=== PATIENT | female | born 1960 | race Caucasian/White ===

== ENCOUNTER → 2016-07-06 | Outpatient (CLI) | payer BC ==
[2016-01-07 14:37] VITALS: BP 115/74; PULSE 83
[~2016-07-06] MED LIST: ANAS1TAB19 PO; ASTN NAE; CALC-452 PO; CALCTAB5 PO; CHOL20007 PO; DOXY-300 PO; ESCI1TAB10 PO; EXEM1TAB PO; IBUP-1050 PO; KETO0.0216 OP; MAGN400T6 PO; MISCCAP80 PO; MOME50SP5; MOME6000 NAE; MULT-513 PO; PRED10TA PO; PRED20TA PO; SALI0.6510 NAE; SUMA100T16 PO; [UNRECOGNIZED DRUG - CODE] TOP
[2016-07-06 14:28] VITALS: BP 129/81; PULSE 80; TEMP 36.6; O2SAT 98
--- NOTE | 2016-07-06 16:14 | Radiation Oncology Follow-Up ---
Radiation Oncology Follow-Up Date of Visit Jul 06, 2016. Reason For Visit Six-month follow-up Radiation Completion Date 12/05/15 Diagnosis (1) Breast cancer of upper-inner quadrant of left female breast Status: Resolved Onset Date: 07/09/2015 Histology Subtype: ductal Stage: l (A) Permanent Comment: Abnormal left breast mammogram 05/14/2015 Status post bilateral breast MRIs 06/19/2015 Status post MRI guided biopsy of the left breast 07/09/2015 Infiltrating ductal carcinoma grade 1 Estrogen receptor positive, progesterone receptor positive, HER-2/sharee negative Status post core biopsy left axilla 07/25/2015 benign Status post MRI guided biopsy of the right breast 07/30/2015 benign Status post lumpectomy and sentinel lymph node biopsy 09/05/2015 Stage pT1a [id number] BRCA1 and BRCA2 testing negative Oncotype DX score of 18 Status post completion of radiation therapy 12/05/2015 received 6640 cGy Last Edited By: Rita Yuan on Jan 07, 2016 16:24 History of Present Illness Ms. Hernandez is a 56-year-old female without an immediate family history of breast cancer. She has been followed with screening mammograms. Her most recent scan performed on 05/14/2015 consisted of a bilateral digital screening mammogram with a 3-D/2-D and CAD. There were 2 areas of possible architectural distortion seen within the left superior breast on the Tomosynthesis images only. One was in the left breast at the 12 o'clock position and the other posteriorly likely located within the left upper inner quadrant. Additional imaging was recommended to include a spot compression view, true lateral view and possible breast ultrasound. On 05/27/2015 patient underwent a unilateral left digital diagnostic mammogram and targeted left breast ultrasound. The recently described architectural distortion was inconspicuous on the standard left MLO mammogram with no suspicious cluster microcalcifications. Further evaluation with ultrasound was performed with no definite tissue distortion or spiculated mass seen to correlate with architectural distortion. However given the patient's dense breast and distant family history of breast cancer a contrast-enhanced bilateral breast MRI was recommended. On 06/19/2015 patient underwent bilateral breast MRIs. In the right breast at the 12 o'clock position anteriorly there is a 5-6 mm enhancing focus which demonstrates corresponding T2 hyperintensity and mixed kinetic pattern. This focus was indeterminant and a second look ultrasound was recommended. The remainder of the right breast demonstrated no suspicious enhancing masses or areas of abnormal non-mass enhancement. In the left breast from the 10th 12:00 middle depth there is an area of non-mass enhancement with associated architectural distortion which measures up to 3.5 x 4.7 x 4.0 cm. This area of enhancement demonstrated a mixed persistent and plateau kinetic pattern and corresponds with the larger area of architectural distortion seen mammographically. In the left breast at the 10 o'clock position posteriorly there is an irregular 0.6 x 0.8 cm area of enhancement which demonstrates a mixed persistent and plateau kinetic pattern that is felt to correlate with the other smaller area of architectural distortion seen mammographically. These 2 areas were felt to be suspicious and were given a BI-RADS Category 4 with recommended biopsy. On 07/09/2015 the patient underwent multiple MRI biopsies of the left breast these were taken from the 2 areas of abnormal enhancement within the left upper inner quadrant seen on the recent breast MRI. The tissue from the left breast upper inner quadrant posteriorly yielded an infiltrating ductal carcinoma grade 1. The pathology from the left upper inner quadrant anterior biopsy revealed benign breast tissue. Given the finding of an carcinoma in the left breast consideration of an MRI guided biopsy of the right breast was recommended. The pathology revealed the tumor to be estrogen receptor positive (100%, strong) and progesterone receptor positive (30%, moderate). HER-2/sharee overexpression was negative (1+) and negative for HER-2/sharee amplification by FISH analysis. Ki -67 revealed 5% of cells positive. Case: [id number]. On 07/30/2015 patient underwent an MRI guided biopsy of the anterior right breast at the 12 o'clock position. This revealed benign breast tissue with nonspecific small areas of nodular fibrosis and chronic inflammation. Case: [id number]. The patient was seen by Dr. Lauren Cueva at [facility] The patient's pathology was reviewed at the [facility]. The initial biopsy was reviewed and confirmed an invasive ductal carcinoma well differentiated with tumor cells ER/WA positive and HER-2/sharee negative. Accession #: [id number]. The mammographic and MRI images were also reviewed. Review of the MRI revealed in the left lower lobe 1 axilla what appeared to be a somewhat rounded and asymmetric node. Based on these images they recommended a left axillary ultrasound and biopsy if appropriate. The left axilla ultrasound revealed an oval axillary lymph node measuring 1.4 cm in the left axilla at the posterior depth. Therefore on 07/25/2015 the patient underwent a core biopsy of the left axillary node. This revealed benign fibrofatty tissue with no lymphoid tissue present. Accession #: [id number]. The patient was subsequently seen by Dr. Shanna Pinto a breast surgeon with the [facility]. She proceeded with a breast conserving therapy recommendation and the patient agreed. On 09/05/2015 the patient underwent a left partial mastectomy and sentinel node biopsy. 3 sentinel nodes were identified and were negative by routine staining and immunohistochemical stain. The lumpectomy tissue revealed residual invasive ductal carcinoma measuring approximately 0.9 mm. This was an invasive ductal carcinoma histologic grade 2. The margins were negative for invasive carcinoma. No DCIS was noted. No lymphovascular invasion was identified and estrogen and progesterone receptors were positive from previous biopsy. The final AJCC pathologic staging was pT1a pN0(sn-) ER positive WA positive HER-2/sharee negative. Patient was seen in referral by Dr. Chuy Song on 09/18/2015. The patient has had reportedly prior BRCA testing which has been negative. Dr. Song wanted to have an Oncotype DX evaluation and this tissue has been sent. However given the small volume it is possible that insufficient tissue is present. He did review with her systemic adjuvant therapy as a more likely recommendation consisting of an aromatase inhibitor if the Oncotype test is possible that this will be used to determine the potential use of chemotherapy. We were asked to see the patient in referral to discuss with her the potential role of radiation. It is for this reason the patient is seen in referral. Her Oncotype DX score came back at 18. She returned and underwent CT simulation. Decision was to treat with conventional radiation therapy. It was best planning in the prone position. Treatment was given from 10/26/2015 to 12/05/2015. She received 6640 cGy. Interim History The past 6 months she has not noted any masses of the breast. She does have an area of scar tissue in the upper inner portion of the breast. She has a sensation of tightness with sternum range of motion of the shoulder. She has noticed no changes of the overlying skin. She's had no change of the axilla. She is up-to-date on mammography as well as MRI imaging. Following her treatment she did receive treatment at the lymphedema therapy clinic. She stated that she did not have any edema in her arm. The therapy given did not relieve a tight feeling she has in the musculature or scar tissue in the upper breast. She does do stretching exercises. She does yoga daily and goes to class once a week. She was seen yesterday in medical oncology. Plans are being made for her to be seen at [facility] and received physical therapy. She will be seeing her breast surgeon. She also made an appointment with the plastic surgeon to evaluate the area of scar tissue. Allergies Coded Allergies: Sertraline (Verified Allergy, Mild, RASH, 09/18/15) Home Medications Scheduled Anastrozole (Arimidex), 1 TAB PO DAILY Azelastine Hcl (Astelin Nasal [place]), 1-2 SPRAYS NA BID Calcium (Caltrate), 600 MG PO BID Escitalopram Oxalate (Lexapro), 20 MG PO DAILY Lubricants (Astroglide), 1 APPLN TOP DAILY Magnesium Oxide (Mag-Ox), 200 MG PO BID Mometasone Furoate (Nasonex), 2 SPRAY NA DAILY Multivitamins/Minerals (Mvi With Minerals), 1 TAB PO DAILY Probiotic Product (Probiotic), 1 CAP PO DAILY Scheduled PRN Ibuprofen (Advil), 200-600 MG PO Q4H PRN for Mild Pain Sumatriptan Succinate (Imitrex), 1 TAB PO UD PRN for Migraine Review of Systems Gastrointestinal: Symptoms: WNL Oral: Symptoms: No Problems Respiratory: Symptoms: WNL Urinary: Symptoms: WNL Comments: Using an astroglide lubricant for burning w/urination-dryness; improved Skin: Symptoms: No Problems Other Skin Symptoms: brown pigment treatment area slight discomfort intermet treatment area Breast: Right Upper Arm Measurement: 28.0 Right Mid Arm Measurement: 24.3 Right Wrist Measurement: 15.5 Left Upper Arm Measurement: 28.5 Left Mid Arm Measurement: 24.5 Left Wrist Measurement: 16.0 Arm Dominence: Right Physical Exam Vital Signs Date Time Temp Pulse Resp B/P Pulse Ox O2 Delivery O2 Flow Rate FiO2 07/06/16 14:28 36.6 80 12 129/81 98 Fatigue: None General Appearance: no apparent distress Eyes: normal inspection, EOMI ENT: normal ENT inspection, hearing grossly normal Neck: no adenopathy, thyroid normal Respiratory/Chest: lungs clear, no respiratory distress, no accessory muscle use Breast: Breast examination reveals well-healed incisions of the left breast. She does have an area of scar tissue in the upper inner portion of the left breast. There are no masses or tenderness and no axillary adenopathy. There is mild edema noted in the lower quadrants. Using the Hitterdal score cosmesis she has a good outcome. There is slight hyperpigmentation. There is a noted oval of hyperpigmentation in the area of her boost. The right breast showed no masses or tenderness and no axillary adenopathy. Cardiovascular: regular rate, rhythm, no gallop, no murmur Abdomen: non tender, soft Extremities: no pedal edema Neurologic/Psychiatric: no motor/sensory deficits, alert, normal mood/affect Skin: warm/dry Lymphatic: no adenopathy Additional Studies Patient: VAUGHN HERNANDEZ [facility] Rec: [id number] Address1: [address] [place] [address] Address2: [place] [address] Acct ID: [id number] Date: 1960 Sex: F Ref Phy: Maryan Vanegas M.D. Att Phy: Shanna Pinto M.D. Sasha Phy: Daylin Mcmahon D.O. Inter Phy: Sherri Khan MD [facility] Zip: [place] [address] SC: [id number] Report #: [id number] Podiatry Doctor: PEDRO Diagnosis: S/P SURGERY FOLLOW UP Service Date: 01/13/16 MNE: [id number] Ordering Dr: Shanna Pinto M.D. CC: Shanna Pinto M.D. CONF: DICTATED BY: Sherri Khan MD MAMMOGRAPHY REPORT UNILATERAL LEFT DIGITAL DIAGNOSTIC MAMMOGRAM 3D/2D: 01/13/2016 CLINICAL HISTORY: 55-year-old female with a history of left breast cancer status post lumpectomy and radiation. She presents for first mammographic follow-up after treatment. Prior to definitive treatment in the left breast, an MRI guided biopsy was performed in the right breast, which yielded benign pathology. Comparison is made to exams dated: 11/04/2015 ultrasound, 07/30/2015 mammogram, mammogram, 07/09/2015 MRI biopsy, 05/13/2010 ultrasound, and 04/29/2010 mammogram - [facility]. FINDINGS: Left CC and MLO 2-D digital and tomosynthesis images were obtained. The tissue of the left breast is heterogeneously dense, which may obscure small masses. Current study was also evaluated with the use of computer aided detection (CAD). A linear scar marker overlies the 12:00 anterior left breast. There is mild diffuse skin thickening and trabecular edema of the left breast. There is also expected architectural distortion and 2 associated surgical clips in the 11:00 to 1:00 posterior left breast, at the site of prior lumpectomy. The previously observed S-shaped and dumbbell shaped biopsy markers have been excised. No unexpected areas of architectural distortion, obvious new mass or new cluster of microcalcifications is seen within the left breast. Would recommend another follow-up of the left breast in 6 months to ensure stability after treatment. Annual right mammography will be due at that time. Would also recommend a bilateral breast MRI now to ensure adequate sampling during the right breast MRI guided biopsy and also to establish new baseline appearance of the left breast status post treatment. IMPRESSION: ACR-BI-RADS CATEGORY 3: PROBABLY BENIGN 1. Expected post-therapeutic changes in the left breast, without definite mammographic evidence of malignancy. Would recommend follow-up left mammograms in 6 more months posttreatment. 2. Annual right mammography will be due in 6 months as well. 3. Would also recommend bilateral breast MRI in the next month to 2 months to assess adequate sampling during the right breast MRI guided biopsy as well as to establish a new baseline appearance of the left breast status post treatment. These results and recommendations were discussed with the patient at the time of the exam. Approximately 10% of breast cancers are not detected with mammography. A negative mammographic report should not delay biopsy if a clinically suggestive mass is present. Sherri Khan M.D. ay/:01/13/2016 12:31:59 Executive Assistant To President: Beth PEREZ)(Cindy), [facility] letter sent: Follow Up Recommended 3 BI-RADS Code: ACR-BI-RADS Category 3: Probably Benign Dictated by: Sherri Khan MD Signed by: Sherri Khan MD Patient: VAUGHN HERNANDEZ [facility] Rec: [id number] Address1: [address] [place] [address] Address2: [place] [address] Acct ID: [id number] Date: 1960 Sex: F Ref Phy: Shanna Pinto M.D. Att Phy: Shanna Pinto M.D. Sasha Phy: Daylin Mcmahon D.O. Inter Phy: Sherri Khan MD [facility] Zip: [place] [address] SC: [id number] Report #: [id number] Podiatry Doctor: LEE Diagnosis: STATUS POST BREAST CA Service Date: 01/26/16 MNE: [id number] Ordering Dr: Shanna Pinto M.D. CC: Shanna Pinto M.D. CONF: DICTATED BY: Sherri Khan MD MAMMOGRAPHY REPORT BREAST MRI OF BOTH BREASTS : 01/26/2016 CLINICAL HISTORY: 55-year-old woman with a history of left breast cancer status post treatment. She presents for first MRI after left breast therapy and to ensure stability of an MRI guided biopsy performed in the 12:00 anterior right breast which yielded benign pathology. Comparison is made to exams dated: 11/04/2015 ultrasound, 07/30/2015 mammogram, MRI biopsy, 07/09/2015 mammogram, 07/09/2015 ultrasound, and 05/27/2015 ultrasound - [facility]. Technique: Using a 1.5 Marybeth magnet and dedicated breast coil, multisequence axial images were obtained through the breasts. After uneventful IV administration of 8 mL of Gadavist, dynamic multiphase contrast-enhanced axial images, and sagittal postcontrast were obtained. Temporal subtraction axial images and 3-D MIP images are provided. Everything was then reviewed on a 3-D workstation, [employer]. Findings: Right breast: There is minimal background parenchymal enhancement. There is susceptibility artifact from the metallic biopsy marker in the 12:00 far anterior right breast, denoting the site of benign MRI guided biopsy. There is no residual 5 mm enhancing focus/mass at that site, confirming adequate tissue sampling. No new suspicious enhancing mass, non-mass enhancement, architectural distortion or suspicious kinetics are seen within the right breast. There is no focal skin thickening or nipple retraction. The retromammary fat is intact. No right axillary, subpectoral or internal mammary lymphadenopathy. Left breast: There is minimal background parenchymal enhancement. There is diffuse left breast skin thickening and trabecular edema, likely related to recent treatment. There are expected postsurgical changes with a surgical cavity and evolving hematoma/postsurgical seroma occupying the 9:00 through 12: 00 anterior to posterior left breast. There is no residual non-mass enhancement or enhancing mass seen within the left breast. No new enhancing mass, non-mass enhancement, unexpected architectural distortion or suspicious kinetics are seen in the left breast. No suspicious left axillary, subpectoral or internal mammary lymphadenopathy is seen. IMPRESSION: ACR BI-RADS CATEGORY 2: BENIGN There are expected post-therapeutic changes in the upper inner left breast status post treatment for breast cancer. Stable post biopsy changes with confirmation of adequate tissue sampling in the 12:00 anterior right breast. Overall, no MRI evidence of malignancy bilaterally. Would recommend follow-up bilateral mammograms in 6 months as well as consideration of continuation of annual surveillance with breast MRI. The patient will receive written notification of the results. Sherri Khan M.D. ay/:01/26/2016 09:45:41 Executive Assistant To President: wet cleaner machine, [facility] letter sent: Normal 1/2 BI-RADS Code: ACR BI-RADS Category 2: Benign Dictated by: Sherri Khan MD Signed by: Sherri Khan MD Assessment & Plan Plan: Continue follow-up with medical oncology. She is going to be scheduled for an evaluation at [facility] for the tightness of the musculature of the upper chest wall. She'll be seeing her breast surgeon as well as plastic surgeon. We did discuss that she could have delayed healing due to the radiation therapy should the plastic surgeon recommend removal of the area of fibrous tissue. We discussed that inflammation caused by radiation can take a long period of time to resolve. She may want to give this more time. She is scheduled for follow-up mammography. The prior mammogram and MRI results were discussed. There is recommendation for an MRI in January 2017. This was scheduled. We will need to get insurance authorization closer to the time of the test. We asked her to return to our office in 1 year. She may call if she has any questions or concerns in the interim. Total Time In Follow-Up I spent 20 minutes speaking to the patient and performing examination. I spent 15 minutes reviewing information in completing this note. Copy To Chuy Song D.O.; Daylin Mcmahon D.O.; Shanna Pinto M.D.
== END | disposition home or self-care (01) ==
LOC: C.ONC 14:21
PROVIDERS: ATTEND Radiology Radiation Oncology
DX: Z08 Encounter for follow-up examination after completed treatment for malignant neoplasm (principal); Z92.3 Personal history of irradiation; Z85.3 Personal history of malignant neoplasm of breast

== ENCOUNTER → 2016-07-14 | Outpatient (CLI) | payer BC ==
--- NOTE | 2016-07-14 15:30 | MAMMOGRAPHY REPORT ---
BILATERAL DIGITAL DIAGNOSTIC MAMMOGRAM TOMOSYNTHESIS WITH CAD: 07/14/2016 CLINICAL HISTORY: 56-year-old woman with a personal history of left breast cancer status post lumpec trevor and radiation in July 2015. She presents for annual bilateral screening mammography. TECHNIQUE: Bilateral breast tomosynthesis in addition to standard 2D mammography was performed. Curr ent study was also evaluated with a Computer Aided Detection (CAD) system. COMPARISON: Comparison is made to exams dated: 01/26/2016 breast MRI, 11/04/2015 ultrasound, 6 mammogram, 07/30/2015 MRI biopsy, and 07/09/2015 mammogram - [facility]. BREAST COMPOSITION: The tissue of both breasts is heterogeneously dense, which may obscure small ma sses. FINDINGS: There are expected post-therapeutic changes in the left breast with expected architectura l distortion and evolving fat necrosis in the 12:00 posterior breast. 2 surgical clips are again se en in place. There is mild diffuse skin thickening of the left breast. Along the skin surgical sca r in the 12:00 periareolar left breast are a few punctate densities. In retrospect comparing to the prior postsurgical mammograms obtained after lumpectomy dated 01/13/2016, these punctate densities appear similar and are located adjacent to the linear scar marker, suggesting dermal origin. No new suspicious mass, architectural distortion or suspicious calcifications are seen throughout the left breast. The right breast is stable compared to prior exams, with a stable dumbbell-shaped metallic biopsy marker in the 12:00 anterior breast. No new suspicious mass, architectural distortion or le spicious calcifications are seen in the right breast. IMPRESSION: ACR-BI-RADS CATEGORY 3: PROBABLY BENIGN There are evolving post-therapeutic changes in the left breast, without mammographic evidence of mal ignancy bilaterally. Recommend another short interval diagnostic evaluation of the left breast in 6 more months. The patient is also due for annual breast MRI for additional surveillance in 2016. These results and recommendations were discussed with the patient at the time of the exam. Approximately 10% of breast cancers are not detected with mammography. A negative mammographic repor t should not delay biopsy if a clinically suggestive mass is present. Sherri Khan M.D. ay/:07/14/2016 12:49:52 Loan Representative: Matilde Andino, [facility] letter sent: Personal History 3 BI-RADS Code: ACR-BI-RADS Category 3: Probably Benign
== END | disposition home or self-care (01) ==
LOC: C.MAMM 07:54
PROVIDERS: ATTEND Surgery
DX: Z08 Encounter for follow-up examination after completed treatment for malignant neoplasm (principal); Z85.3 Personal history of malignant neoplasm of breast

== ENCOUNTER 2016-09-02 22:05 | Emergency (ER) | payer BC ==
[~2016-09-02] VITALS: Ht 167.6 cm; Wt 78.7 kg
[~2016-09-02 22:05] MED LIST changes: -CALC-452 PO; -CHOL20007 PO; -DOXY-300 PO; -EXEM1TAB PO; -KETO0.0216 OP; -MOME6000 NAE; -PRED10TA PO; -PRED20TA PO; -SALI0.6510 NAE
[2016-09-02 22:08] VITALS: TEMP 37.2; Ht 167.6 cm; Wt 78.7 kg
[2016-09-02 22:48] LABS: BASO % 0.3 %; BASO ABS # 0.02 K/uL (0-0.2); COMPLETE YES; EOS % 0.6 %; HEMATOCRIT 38.5 % (37-47); IG% 0.4 %; LYMPH % 28.2 %; LYMPH ABS # 2.01 K/uL (1.2-3.4); MEAN CORPUSCULAR HGB CONC 32.5 g/dl (32-36); MEAN PLATELET VOLUME 9.6 fL (7.4-10.4); MONO % 8.8 %; NEUT % 61.7 %; PLATELET COUNT 240 K/uL (130-400); WHITE BLOOD COUNT 7.12 K/uL (4.8-10.8)
[2016-09-02 22:55] LABS: BUN/CREATININE RATIO 14.9 (10-20); CREATININE 0.72 mg/dl (0.60-1.20); POTASSIUM 3.7 mmol/L (3.5-5.1)
[2016-09-02] MEDS ORDERED: SALI0.6510 NAE (22:56)
[2016-09-02] MEDS ORDERED: CHOL20007 PO (22:56)
[2016-09-02] MEDS ORDERED: CALC-452 PO (22:56)
[2016-09-02] MEDS ORDERED: EXEM1TAB PO (22:56)
[2016-09-02] MEDS ORDERED: KETO0.0216 OP (22:56)
[2016-09-02] MEDS ORDERED: PRED10TA PO (22:56)
[2016-09-02] MEDS ORDERED: MOME6000 NAE (22:56)
--- NOTE | 2016-09-02 22:58 | DIAGNOSTIC IMAGING REPORT ---
CT HEAD WITHOUT CONTRAST (CT) CLINICAL HISTORY: R FACIAL DROOP COMPARISON STUDY: No previous studies for comparison. TECHNIQUE: Axial CT of the brain is performed from the vertex to the skull base. IV contrast was not administered for this examination. CT DOSE: 537.48 mGy.cm FINDINGS: No intra or extra-axial mass lesions are visualized. There is no CT evidence of acute cortical infarction. There is no evidence of midline shift. There is no acute hemorrhage. No calvarial fractures are visualized. There is no evidence of pathologic ventricular dilatation. There is no evidence of acute sinusitis IMPRESSION: No acute intracranial findings Electronically signed by: Walter Nash M.D. 09/02/2016 10:57 PM Dictated Date/Time: 09/02/2016 10:56 PM
[2016-09-02 23:03] LABS: CALCIUM 8.9 mg/dl (8.5-10.1)
[2016-09-03] MEDS ORDERED: DOXY-300 PO (00:11)
[2016-09-03] MEDS ORDERED: PRED20TA PO (00:11)
[2016-09-03] MEDS ORDERED: DOXYCYCLINE HYCLATE 100 MG CAP PO ONE (00:15)
[2016-09-03] MEDS ORDERED: ARTIFICIAL TEARS OP SOLN OP PRN ×2 (00:15)
[2016-09-03] MEDS ORDERED: ARTIFICIAL TEARS OP OINT 3.5 GM TUBE OP PRN (00:15)
[2016-09-03 00:35] VITALS: BP 141/90; PULSE 76; O2SAT 96
--- NOTE | 2016-09-03 02:16 | EMERGENCY ROOM VISIT NOTE ---
History Report prepared by Brenda: Amie Horne Under the Supervision of: Dr. Randall Carreon D.O. First contact with patient: 22:12 Chief Complaint: NEURO SYMPTOMS Stated Complaint: POSSIBLE BELLS PALSY,RT SIDE OF FACE Nursing Triage Summary: Pt presents stating woke up Sat with an ear ache and sore throat. On Mon saw PCP, placed on tapering dose of prednisone. Pt states not feeling any better, not able to be seen today. Tongue began to feel numb around 1500. Difficulty seeing computer approx 1630. Once home noticed that left eye looks odd and unable to close right eye. Smile is off on the right. Concerned for Alma Palsy. Hx of breast ca. History of Present Illness The patient is a 56 year old female who presents to the Emergency Room with complaints of constant right sided facial droop beginning today. The patient states that she woke up 5 days ago with an ear ache and sore throat .She notes that she went to see her doctor 3 days ago and was put on prednisone without relief of her symptoms. Today she reports that she noticed her symptoms worsening with her tongue burning and was not able to be seen by her PCP. The patient complains of a sore throat, ear pain, tongue burning, blurry vision, very dry eye, sensitivity to sound in the right ear, dizziness, and difficulty smiling and moving her face. She denies any weakness or numbness in the arms and legs, recent tick bites, hiking, and traveling. She reports that she has a history of breast cancer and has factor 5 Leiden heterozygous without any history of previous clots. Source of History: patient Onset: today Position: other (left face) Quality: other (droop) Timing: constant Associated Symptoms: + sorethroat, No numbness, No weakness Note: The patient complains of a ear pain, tongue numbness, blurry vision, dizziness, and difficulty smiling and moving her face. She denies any recent tick bites, hiking, and traveling. Review of Systems See HPI for pertinent positives & negatives. A total of 10 systems reviewed and were otherwise negative. Past Medical & Surgical Medical Problems: (1) Breast cancer of upper-inner quadrant of left female breast Family History No pertinent family history stated. Social History Smoking Status: Never Smoker Marital Status: Housing Status: lives with significant other Occupation Status: employed Current/Historical Medications Scheduled Azelastine Hcl (Astelin Nasal [place]), 2 SPRAYS BANG BID Calcium Carbonate-Cholecalcife (Calcium 600 + D 600-200 mg-Unit), 1 TAB PO BID Cholecalciferol (Vitamin D3), 2,000 INTER.UNIT PO BID Doxycycline (Monohydrate) (Doxycycline), 100 MG PO BID Escitalopram Oxalate (Lexapro), 20 MG PO DAILY Exemestane (Aromasin), 25 MG PO DAILY Magnesium Oxide (Mag-Ox), 200 MG PO BID Mometasone Furoate (Nasal) (Mometasone Furoate), 2 SPRAYS BANG BID Multivitamins/Minerals (Mvi With Minerals), 1 TAB PO DAILY Prednisone (Prednisone), 10 MG PO UD Prednisone (Prednisone), 3 TAB PO DAILY Probiotic Product (Probiotic), 1 CAP PO DAILY Scheduled PRN Ibuprofen (Advil), 200-600 MG PO Q4H PRN for Pain or Fever Ketotifen Fumarate (Ophth) (Zaditor 0.025% Oph), 1 DROP OP Q8-12 HRS PRN for Allergies Saline (Deaf Smith Nasal [place]), 2 SPRAYS BANG Q2-4HRS PRN for Nasal Congestion Sumatriptan Succinate (Imitrex), 100 MG PO UD PRN for Migraine Allergies Coded Allergies: Sertraline (Verified Allergy, Mild, RASH, 09/18/15) Physical Exam Vital Signs Date Time Temp Pulse Resp B/P Pulse Ox O2 Delivery O2 Flow Rate FiO2 09/03/16 00:35 76 18 141/90 96 09/02/16 22:08 37.2 77 18 138/84 96 Room Air Physical Exam GENERAL: sitting up in bed, alert, well appearing, well nourished, no distress, non-toxic EYE EXAM: normal conjunctiva, Pupils are 3mm and reactive and EOM's intact, difficulty closing right eye OROPHARYNX: no exudate, no erythema, lips, buccal mucosa, and tongue normal and mucous membranes are moist, no deviation of the tongue NECK: supple, no nuchal rigidity, no adenopathy, non-tender LUNGS: Clear to auscultation. Normal chest wall mechanics HEART: no murmurs, S1 normal and S2 normal ABDOMEN: abdomen soft, non-tender, normo-active bowel sounds, no masses, no rebound or guarding. BACK: Back is symmetrical on inspection and there is no deformity, no midline tenderness, no CVA tenderness. SKIN: no rashes and no bruising UPPER EXTREMITIES: upper extremities are grossly normal. LOWER EXTREMITIES: No pitting edema. NEURO EXAM: Normal sensorium, normal speech, no weakness of arms, no weakness of legs. No drift. Finger to nose intact. Gross sensation intact. Right sided facial droop prominent below the right eyebrow but includes forehead slightly but she is still able to lift eyebrows B/L, unable to puff out cheeks and slight droop on the right with smiling. Medical Decision & Procedures ER Provider Diagnostic Interpretation: Radiology results as stated below per my review and the radiologist's interpretation: CT HEAD WITHOUT CONTRAST (CT) FINDINGS: No intra or extra-axial mass lesions are visualized. There is no CT evidence of acute cortical infarction. There is no evidence of midline shift. There is no acute hemorrhage. No calvarial fractures are visualized. There is no evidence of pathologic ventricular dilatation. There is no evidence of acute sinusitis IMPRESSION: No acute intracranial findings Electronically signed by: Walter Nash M.D. 09/02/2016 10:57 PM Dictated Date/Time: 09/02/2016 10:56 PM Laboratory Results 09/02/16 22:15 Red Blood Count 5.20, Mean Corpuscular Volume 74.0, Mean Corpuscular Hemoglobin 24.0, Mean Corpuscular Hemoglobin Concent 32.5, Mean Platelet Volume 9.6, Neutrophils (%) (Auto) 61.7, Lymphocytes (%) (Auto) 28.2, Monocytes (%) (Auto) 8.8, Eosinophils (%) (Auto) 0.6, Basophils (%) (Auto) 0.3, Neutrophils # (Auto) 4.39, Lymphocytes # (Auto) 2.01, Monocytes # (Auto) 0.63, Eosinophils # (Auto) 0.04, Basophils # (Auto) 0.02 09/02/16 22:15 Test 09/02/16 22:15 White Blood Count 7.12 K/uL (4.8-10.8) Red Blood Count 5.20 M/uL (4.2-5.4) Hemoglobin 12.5 g/dL (12.0-16.0) Hematocrit 38.5 % (37-47) Mean Corpuscular Volume 74.0 fL (80-100) Mean Corpuscular Hemoglobin 24.0 pg (25-34) Mean Corpuscular Hemoglobin Concent 32.5 g/dl (32-36) Platelet Count 240 K/uL (130-400) Mean Platelet Volume 9.6 fL (7.4-10.4) Neutrophils (%) (Auto) 61.7 % Lymphocytes (%) (Auto) 28.2 % Monocytes (%) (Auto) 8.8 % Eosinophils (%) (Auto) 0.6 % Basophils (%) (Auto) 0.3 % Neutrophils # (Auto) 4.39 K/uL (1.4-6.5) Lymphocytes # (Auto) 2.01 K/uL (1.2-3.4) Monocytes # (Auto) 0.63 K/uL (0.11-0.59) Eosinophils # (Auto) 0.04 K/uL (0-0.5) Basophils # (Auto) 0.02 K/uL (0-0.2) RDW Standard Deviation 43.7 fL (36.4-46.3) RDW Coefficient of Variation 16.1 % (11.5-14.5) Immature Granulocyte % (Auto) 0.4 % Immature Granulocyte # (Auto) 0.03 K/uL (0.00-0.02) Anion Gap 6.0 mmol/L (3-11) Est Creatinine Clear Calc Drug Dose 94.5 ml/min Estimated GFR () 110.0 Estimated GFR (Non- 94.9 BUN/Creatinine Ratio 14.9 (10-20) Calcium Level 8.9 mg/dl (8.5-10.1) Laboratory results per my review. Medications Administered Medications (Trade) Dose Ordered Sig/Yonis Route Start Time Stop Time Status Last Admin Dose Admin Doxycycline Hyclate (Vibramycin Cap) 100 mg ONE ONCE PO 09/03/16 00:15 09/03/16 00:16 DC 09/03/16 00:26 100 MG Artificial Tears (Artificial Tears) 2 drops Q1HWA PRN OP 09/03/16 00:15 09/03/16 01:04 DC 09/03/16 00:26 2 DROPS Artificial Tears (Lacri-Lube Oph Oint) 1 appln QPM PRN OP 09/03/16 00:15 09/03/16 01:04 DC 09/03/16 00:26 1 APPLN Prednisone (PredniSONE TAB) 40 mg NOW STAT PO 09/03/16 00:15 09/03/16 00:16 DC 09/03/16 00:26 20 MG ED Course ED COURSE: Vital signs were reviewed and normal The patients medical record was reviewed The above diagnostic studies were performed and reviewed. ED treatments and interventions as stated above. 2212: The patient was evaluated in room A11. A complete history and physical examination was performed. 0015: Prednisone 40mg PO, Artificial Tears 1 appln PRN OP dry eye, Artificial Tears 2 drops PRN OP now, Vibramycin Cap 100mg Po. 0020: Upon reevaluation, the patient is hemodynamically stable.I discussed my findings with the patient and she understands and agrees with the treatment plan. Based on the patients age, coexisting illnesses, exam and lab findings the decision to treat as an outpatient was made. The patient remained stable while under my care. The patient appeared well at the time of discharge. Medical Decision Differential Diagnosis includes but is not limited to ischemic Stroke, hemorrhagic stroke, bells palsy, mass, neoplasm, migraine headache, seizure, subarachnoid hemorrhage, TIA, and transient global amnesia. Patient is a 56-year-old female who presents the ER with a right-sided facial droop and trouble closing her right eye which has been present since this morning. Patient is able to raise her forehead bilaterally but this is decreased on the right. She complains of a weird feeling on her tongue and pain in her right ear along with a hypersensitivity to sound. She also complains of a dry eye. She has no eye pain. Visual acuity is equal. Neurologically she is completely intact otherwise. CT head was negative. CT head was performed with the complaint of tingling/numbness of the tongue and still slightly able to lift eyebrow on the right as this was not completely absent to make it clear cut bells palsy. Patient has been on steroids already. Steroids were increased to 60 mg for the next 3 days. Lyme was indeterminate. CBC along with BMP was unremarkable. Patient was given doxycycline along with eyedrops and eye ointment. She was instructed to follow- up with ophthalmology and her primary care doctor. She will call back to the ER in the next 3-5 days to check for the Western blot to see if she can stop her antibiotics/doxycycline. Patient was also given an eye guard. Instructed to return for any weakness or numbness in extremities and to follow up with PCP especially if symptoms worsen ie unable to lift eyebrow and she may need antivirals with the bells palsy worsening and lyme should be back by then. Discussed with Pt concerning signs and symptoms to watch out for. Pt was instructed to follow up with their PCP and discussed with the patient their option to return to the ED at anytime for persistent or worsening symptoms. The appropriate anticipatory guidance and out-patient management, including indications for return to the emergency department, were explained at length to the patient and understood. Impression Primary Impression: Bahena's palsy Additional Impression: Lyme disease Scribe Attestation The scribe's documentation has been prepared under my direction and personally reviewed by me in its entirety. I confirm that the note above accurately reflects all work, treatment, procedures, and medical decision making performed by me. Departure Information Dispostion Home / Self-Care Prescriptions Doxycycline (Monohydrate) (Doxycycline) 100 Mg Cap 100 MG PO BID for 14 Days Prov: Randall Carreon, DO 09/03/16 Prednisone (Prednisone) 20 Mg Tab 3 TAB PO DAILY for 3 Days, #9 TAB Prov: Randall Carreon, DO 09/03/16 Referrals Daylin Mcmahon D.O. (PCP) Forms HOME CARE DOCUMENTATION FORM, IMPORTANT VISIT INFORMATION, WORK / SCHOOL INSTRUCTIONS Patient Instructions ED Alma Palsy, My [facility] Additional Instructions Please follow up with your primary care doctor or if you are a student [facility] with in the next 24 hours. Any worsening of your symptoms, please return to the ED immediately. Unable to raise your eyebrow, loss of vision, eye pain, fevers, swelling of her face, or any other concerning signs or symptoms from your standpoint. Please take your doxycycline as prescribed and if you do not receive a call in 5 days please call back [phone] to receive the results to confirm whether you continue the antibiotics or stop them. Please use the liquid eyedrops every hour keep her eye moist. Please use the ointment at night so your eye does not dry out. Please follow up with optometry/your eye doctor within the next 2-3 days. You want to take 60 mg of steroids daily for the next 3 days. Problem Qualifiers
[2016-09-07 10:42] LABS: 18KDIGG BAND NONREACTIVE (NONREACTIVE); 23KDIGG BAND NONREACTIVE (NONREACTIVE); 23KDIGM BAND REACTIVE (NONREACTIVE); 28KDIGG BAND NONREACTIVE (NONREACTIVE); 30KDIGG BAND NONREACTIVE (NONREACTIVE); 39KDIGG BAND REACTIVE (NONREACTIVE); 39KDIGM BAND NONREACTIVE (NONREACTIVE); 41KDIGG BAND REACTIVE (NONREACTIVE); 41KDIGM BAND NONREACTIVE (NONREACTIVE); 45KDIGG BAND NONREACTIVE (NONREACTIVE); 58KDIGG BAND NONREACTIVE (NONREACTIVE); 66KDIGG BAND NONREACTIVE (NONREACTIVE); 93KDIGG BAND NONREACTIVE (NONREACTIVE)
--- NOTE | 2016-09-07 15:32 | Pharmacy Progress Note ---
ED Pharmacist Culture FollowUp Date of Service: September 07, 2016. Patient was seen in the ER on 09/02 for R sided facial droop along w/ c/o sore throat, ear pain, tongue burning/numbness, blurry vision, dizziness, difficulty smiling and increased sensitivity to sound. Patient's symptoms began 08/28 initially w/ ear and throat pain, facial droop and other symptoms did not appear until 09/02. Patient denies recent tick bite, hiking or travel. She was reported to be able to raise forehead bilaterally although less so on the R. Preliminary dx was Bahena's Palsy, however her IgM Ab was equivocal and Lyme dz could not be r/o; so the patient was given Rx for Doxycycline 100mg BID x 14 days and she was told to call in 3-5 days to find out if she needed to continue taking the abx. She did call today. The Lyme western blot tests were both negative. However given her symptoms and possibility of early lyme disease being missed if pt did not have time to seroconvert the IgM (and IgG) screen w/ western blot will be repeated. There are a small number of patient's who are not IgM seropositive when cranial neuropathies develop. Dr Crockett provided a written lab order that I delivered to the registration desk. Patient is aware the case was reviewed w/ Dr Crockett and that she should have repeat Lyme testing before Doxy is discontinued. If IgM Ab +/- western blot are negative, the doxycycline may be discontinued.
== END 2016-09-03 00:35 | disposition home or self-care (01) ==
LOC: C.EDB 22:06 → C.EDA 09-03 00:35
DX: A69.20 Lyme disease, unspecified (principal); R29.810 Facial weakness; Z79.899 Other long term (current) drug therapy; Z88.8 Allergy status to other drugs, medicaments and biological substances

== ENCOUNTER → 2016-09-07 | Outpatient (CLI) | payer BC ==
[~2016-09-07] MED LIST changes: -ANAS1TAB19 PO; +CALC-452 PO; -CALCTAB5 PO; +CHOL20007 PO; +DOXY-300 PO; +EXEM1TAB PO; +KETO0.0216 OP; -MOME50SP5; +MOME6000 NAE; +PRED10TA PO; +PRED20TA PO; +SALI0.6510 NAE; -[UNRECOGNIZED DRUG - CODE] TOP
[2016-09-11 04:29] LABS: 18KDIGG BAND NONREACTIVE (NONREACTIVE); 23KDIGG BAND NONREACTIVE (NONREACTIVE); 23KDIGM BAND REACTIVE (NONREACTIVE); 28KDIGG BAND NONREACTIVE (NONREACTIVE); 30KDIGG BAND NONREACTIVE (NONREACTIVE); 39KDIGG BAND NONREACTIVE (NONREACTIVE); 39KDIGM BAND NONREACTIVE (NONREACTIVE); 41KDIGG BAND REACTIVE (NONREACTIVE); 41KDIGM BAND NONREACTIVE (NONREACTIVE); 45KDIGG BAND NONREACTIVE (NONREACTIVE); 58KDIGG BAND NONREACTIVE (NONREACTIVE); 66KDIGG BAND NONREACTIVE (NONREACTIVE); 93KDIGG BAND NONREACTIVE (NONREACTIVE)
== END | disposition home or self-care (01) ==
LOC: C.LAB 18:26
PROVIDERS: ATTEND Emergency Medicine
DX: G51.0 Bell's palsy (principal)

== ENCOUNTER → 2016-09-21 | Outpatient (CLI) | payer BC ==
[~2016-09-21] MED LIST changes: +GADAVIST IV PRN; -PRED20TA PO
--- NOTE | 2016-09-21 14:43 | DIAGNOSTIC IMAGING REPORT ---
MRI brain BRAIN COMBO FOR IAC CLINICAL HISTORY: FACIAL NERVE Palsy, blurred VISION facial nerve palsy TECHNIQUE: MRI multi axial acquisition COMPARISON STUDY: None FINDINGS: Signal characteristics of the cerebellar as well as cerebral hemispheres are unremarkable. Ventricular system is midline. Internal_ canals are symmetric. Sella and parasellar regions are unremarkable. There are several very small punctate foci of increased signal within the periventricular regions. This consistent with minimal chronic small vessel change. Study is again negative for abnormal postcontrast enhancement. IMPRESSION: Negative study Electronically signed by: Prem Watkins M.D. 09/21/2016 2:42 PM Dictated Date/Time: 09/21/2016 2:38 PM
== END | disposition home or self-care (01) ==
LOC: C.MRIBC 13:15
PROVIDERS: ATTEND Internal Medicine
DX: G51.0 Bell's palsy (principal); H92.01 Otalgia, right ear; H53.8 Other visual disturbances; C50.212 Malignant neoplasm of upper-inner quadrant of left female breast

== ENCOUNTER → 2017-01-06 | Outpatient (CLI) | payer BC ==
[~2017-01-06] MED LIST changes: -GADAVIST IV PRN
--- NOTE | 2017-01-06 08:57 | DIAGNOSTIC IMAGING REPORT ---
CERVICAL SPINE 4 OR 5 VIEWS CLINICAL HISTORY: Neck pain COMPARISON STUDY: No previous studies for comparison. FINDINGS: The prevertebral soft tissues are normal. There are mild degenerative changes most pronounced at the C5-6 level. No fractures, subluxations, or destructive lesions are visualized. IMPRESSION: 1. No fractures or subluxations 2. Mild degenerative change most pronounced at the C5-6 level. Electronically signed by: Walter Nash M.D. 01/06/2017 8:56 AM Dictated Date/Time: 01/06/2017 8:55 AM
== END | disposition home or self-care (01) ==
LOC: C.RDSM 10:47
PROVIDERS: ATTEND Family Medicine
DX: M54.2 Cervicalgia (principal)

== ENCOUNTER → 2017-01-26 | Outpatient (CLI) | payer BC ==
--- NOTE | 2017-01-26 15:18 | MAMMOGRAPHY REPORT ---
UNILATERAL LEFT DIGITAL DIAGNOSTIC MAMMOGRAM TOMOSYNTHESIS WITH CAD: 01/26/2017 CLINICAL HISTORY: 56-year-old woman with a personal history of left breast cancer status post breast conservation treatment presents for a close follow-up in the left breast. An MRI was also performed earlier today which demonstrated no suspicious abnormalities. TECHNIQUE: Left breast CC and MLO 2-D and tomosynthesis images, spot magnification left CC and ML vie ws were obtained. Current study was also evaluated with a Computer Aided Detection (CAD) system. COMPARISON: Comparison is made to exams dated: 01/26/2017 breast MRI, 07/14/2016 mammogram, 01/26/2016 b reast MRI, 01/13/2016 mammogram, 11/04/2015 ultrasound, and 07/30/2015 mammogram - [facility]. BREAST COMPOSITION: The tissue of the left breast is heterogeneously dense, which may obscure small masses. FINDINGS: There is expected architectural distortion, oil cysts and 2 surgical clips in the 11:00 to 12:00 left breast, at the site of prior lumpectomy. There are punctate microcalcifications in the up per outer anterior left breast, which correspond to skin based on a tangential view performed in the ML projection, confirming benignity. There are grouped reticular calcifications projecting over an o il cyst in the 12:00 left breast, most likely fat necrosis. No suspicious mass, architectural distor tion or cluster of new, suspicious microcalcifications is seen. IMPRESSION: ACR-BI-RADS CATEGORY 3: PROBABLY BENIGN 1. Expected post treatment changes in the left breast, with benign dermal calcifications anteriorly, and probable fat necrosis in the 12:00 axis. Another short interval follow-up left diagnostic mammo gram and possible ultrasound is recommended in 6 months. Annual right mammography will also be due a t that time. 2. An MRI of the breasts performed earlier today was also coded as benign, without MRI evidence of m alignancy. Recommend continuation of annual breast MRI for additional surveillance. These results and recommendations were discussed with the patient at the time of the exam. Approximately 10% of breast cancers are not detected with mammography. A negative mammographic report should not delay biopsy if a clinically suggestive mass is present. Sherri Khan M.D. ay/:01/26/2017 09:18:40 Dual Rate Dealer: Matilde Andino, [facility] letter sent: Follow Up Recommended 3 BI-RADS Code: ACR-BI-RADS Category 3: Probably Benign
== END | disposition home or self-care (01) ==
LOC: C.MAMM 08:12
PROVIDERS: ATTEND Surgery
DX: Z98.890 Other specified postprocedural states (principal); R92.1 Mammographic calcification found on diagnostic imaging of breast

== ENCOUNTER → 2017-01-26 | Outpatient (CLI) | payer BC ==
[~2017-01-26] MED LIST changes: +GADAVIST IV PRN
--- NOTE | 2017-01-26 15:18 | MAMMOGRAPHY REPORT ---
BREAST MRI OF BOTH BREASTS : 01/26/2017 CLINICAL HISTORY: History of left breast cancer status post lumpectomy and radiation therapy. Also w ith a history of a benign MRI guided biopsy of the right breast. COMPARISON: Comparison is made to exams dated: 07/14/2016 mammogram, 01/26/2016 breast MRI, 01/13/2016 ma mmogram, 07/30/2015 mammogram, 07/09/2015 mammogram, and 06/19/2015 breast MRI - [facility] nt. Technique: The patient was placed prone in a dedicated breast imaging coil. Precontrast axial T1-ida ghted, axial T2-weighted fat saturation, and axial T1-weighted fat saturation images were obtained. After the administration of 7.5 mL of Gadavist IV contrast, sequential T1-weighted fat saturation adri ges were obtained. Subtraction images were obtained of the dynamic contrast enhanced sequences, and 3-D reformations were performed. The [employer] software was used for kinetic analysis. Findings: Right breast: There is mild background parenchymal enhancement. There are no suspicious enhancing ma sses or areas of abnormal non-mass enhancement within the right breast. There has been no significan t interval change compared to prior exams. Susceptibility artifact is seen from biopsy marker clip i n the right anterior breast related to prior benign MRI guided biopsy. Left breast: There is mild background parenchymal enhancement. Again noted are post treatment change s in the left breast from prior lumpectomy and radiation therapy, including an evolving seroma/hemato ma (measuring 2.4 x 3.7 cm on series 6 image 31) as well as fat necrosis at the surgical bed in the l eft upper inner quadrant. Mild diffuse left breast skin thickening is again noted, which is likely a sequela of radiation therapy. There are no suspicious enhancing masses or areas of abnormal non-mas s enhancement within the left breast. There is no evidence of axillary adenopathy. The chest wall structures are negative. Visualized ext ramammary soft tissues are grossly unremarkable. IMPRESSION: ACR BI-RADS CATEGORY 2: BENIGN Posttreatment changes in the left breast, with no MRI evidence of malignancy in either breast. Consi ama continuation with annual screening breast MRI. The patient is also due for bilateral diagnostic m ammograms in 6 months, as recommended on the diagnostic mammogram report from today. Edie Gonzales M.D. /:01/26/2017 13:32:44 Tubing Machine Operator: erp consultant, [facility] BI-RADS Code: ACR BI-RADS Category 2: Benign
== END | disposition home or self-care (01) ==
LOC: C.MRI 06:32
PROVIDERS: ATTEND Physician Assistant Medical
DX: C50.212 Malignant neoplasm of upper-inner quadrant of left female breast (principal); Z98.890 Other specified postprocedural states

== ENCOUNTER → 2017-01-28 | Outpatient (CLI) | payer BC ==
[~2017-01-28] MED LIST changes: -GADAVIST IV PRN
--- NOTE | 2017-01-28 18:29 | DIAGNOSTIC IMAGING REPORT ---
CERVICAL WITHOUT CONTRAST HISTORY: Pain. Neuropathy. NECK PAIN TECHNIQUE: Multiplanar multisequence MRI of the cervical spine was performed without the use of contrast. COMPARISON STUDY: None. FINDINGS: Mild degenerative disc change throughout. This is most prominent at C5-C6 and to a lesser extent C6-C7. Bone marrow hemangioma is of C2 and C4. Signal characteristics of the cervical cord appear unremarkable. C2-C3: No significant central canal or neural foraminal narrowing. C3-C4: No significant central canal or neural foraminal narrowing. C4-C5: Minimal broad-based disc bulge. No significant contact with the cervical cord or neural elements. C5-C6: Mild broad-based disc bulge. No significant deformity or contact with the cervical cord. Mild narrowing of the neuroforamina bilaterally. C6-C7: Minimal central disc bulge. No contact with the cervical cord or neural elements. C7-T1: No significant central canal or neural foraminal narrowing. IMPRESSION: 1. Broad-based bulging disc C5-C6 with mild narrowing of the neuroforamina bilaterally. No significant deformity or contact with the cervical cord.. 2. Minimal broad-based disc bulges C4-C5 and C6-C7. 3. No evidence for a significant disc herniation or spinal stenosis 4. Moderate degenerative disc change C5-C7 The above report was generated using voice recognition software. It may contain grammatical, syntax or spelling errors. Electronically signed by: Prem Watkins M.D. 01/28/2017 6:27 PM Dictated Date/Time: 01/28/2017 6:24 PM
== END | disposition home or self-care (01) ==
LOC: C.MRI 17:35
PROVIDERS: ATTEND Physical Medicine & Rehabilitation
DX: M50.222 Other cervical disc displacement at C5-C6 level (principal); M48.02 Spinal stenosis, cervical region; M50.322 Other cervical disc degeneration at C5-C6 level

== ENCOUNTER → 2017-03-25 | Outpatient (CLI) | payer BC, OTHER ==
--- NOTE | 2017-03-25 11:40 | DIAGNOSTIC IMAGING REPORT ---
CHEST 2 VIEWS ROUTINE CLINICAL HISTORY: FALL trauma COMPARISON STUDY: [phone] FINDINGS: No evidence for cardiac enlargement. Stable left hilar node. Lungs are clear. Diaphragms are smooth. IMPRESSION: No acute process. The above report was generated using voice recognition software. It may contain grammatical, syntax or spelling errors. Electronically signed by: Prem Watkins M.D. 03/25/2017 11:39 AM Dictated Date/Time: 03/25/2017 11:38 AM
--- NOTE | 2017-03-25 12:26 | DIAGNOSTIC IMAGING REPORT ---
L RIBS UNILATERAL MIN 2 VIEWS CLINICAL HISTORY: 57 years-old Female presenting with S/P FALL. TECHNIQUE: Frontal and oblique views of the left ribs were obtained. COMPARISON: Correlation made to chest CT from 11/20/2015. FINDINGS: Nondisplaced fracture suspected in the left posterior lateral eighth rib, a deformity that was not present on prior CT. No additional abnormality to suggest other site of fracture. Partially evaluated thorax demonstrates calcified mediastinal lymph nodes and otherwise normal cardiac mediastinal silhouette. Left lung and pleural space clear. Moderate stool burden. IMPRESSION: Suggestion of nondisplaced fracture at the left posterior lateral eighth rib. Correlate for point tenderness. Electronically signed by: Ector Perkins M.D. 03/25/2017 12:25 PM Dictated Date/Time: 03/25/2017 12:22 PM
--- NOTE | 2017-04-11 10:44 | CODING QUERY NO DIAGNOSIS ---
SUPPORTING DIAGNOSIS NEEDED A supporting diagnosis is required for the test/procedure performed on this patient in order for us to be reimbursed by the patient's insurance. Please provide a supporting diagnosis for the following test/procedure listed below next to the test name along with your signature. *If there is no additional diagnosis for this patient that would support the following test/procedure please document that below next to the test/procedure. Test(s)/Procedure(s) that require a supporting diagnosis: * RIBS UNILATERAL MIN 2 VIEWS DIAGNOSIS: * CHEST 2 VIEWS ROUTINE DIAGNOSIS: Provider Signature: Date: Thank you Nafisa Ruiz [employer] Once completed, please kindly fax back to [phone] For questions please call [phone]
== END | disposition home or self-care (01) ==
LOC: C.RAD1850 11:30
PROVIDERS: ATTEND Nurse Practitioner
DX: R07.9 Chest pain, unspecified (principal)

== ENCOUNTER → 2017-07-26 | Outpatient (CLI) | payer OTHER ==
--- NOTE | 2017-07-26 14:58 | MAMMOGRAPHY REPORT ---
BILATERAL DIGITAL DIAGNOSTIC MAMMOGRAM TOMOSYNTHESIS WITH CAD: 07/26/2017 CLINICAL HISTORY: History of left breast cancer diagnosed in 2016 status post lumpectomy. The patien t reports no current complaints. TECHNIQUE: Breast tomosynthesis in addition to standard 2D mammography was performed. Current study was also evaluated with a Computer Aided Detection (CAD) system. Bilateral CC and MLO 2D and tomosyn thesis images and spot magnification left CC and ML views were obtained. COMPARISON: Comparison is made to exams dated: 01/26/2017 mammogram, 01/26/2017 breast MRI, 07/14/2016 m ammogram, 01/26/2016 breast MRI, 01/13/2016 mammogram, and 11/04/2015 [facility]. BREAST COMPOSITION: The tissue of both breasts is heterogeneously dense, which may obscure small mas ses. FINDINGS: Again noted are postsurgical changes in the left superior breast at approximately 12:00 fro m prior lumpectomy, including stable density and architectural distortion as well as surgical clips a t the lumpectomy bed. Fat density masses are again noted at the lumpectomy bed, consistent with fat necrosis. There are new coarse calcifications outlining some of the fat density masses, consistent w ith benign coarse dystrophic calcifications from fat necrosis. A few punctate benign-appearing calci fications within the left upper outer anterior breast are not significantly changed. The remainder of both breasts are stable compared to prior exams, without suspicious masses, calcific ations, or areas of architectural distortion noted. A biopsy clip is again noted within the right 12 :00 anterior breast. IMPRESSION: ACR BI-RADS CATEGORY 2: BENIGN Expected posttreatment changes in the left breast, without mammographic evidence of malignancy in eit her breast. Recommend routine bilateral mammograms in 1 year; consider remaining a diagnostic patien t so that spot magnification views can be performed of the lumpectomy bed if needed. Additionally, c onsider continuation with annual screening breast MRI given the personal history of breast cancer and dense breast parenchyma mammographically, which would be due in January 2018. The patient has been verbally notified of the results. Approximately 10% of breast cancers are not detected with mammography. A negative mammographic report should not delay biopsy if a clinically suggestive mass is present. Edie Gonzales M.D. /:07/26/2017 08:23:38 Managed Care Director: Matilde Andino, [facility] letter sent: Normal /2 BI-RADS Code: ACR BI-RADS Category 2: Benign
== END | disposition home or self-care (01) ==
LOC: C.MAMM 07:55
PROVIDERS: ATTEND Obstetrics & Gynecology
DX: Z85.3 Personal history of malignant neoplasm of breast (principal); Z08 Encounter for follow-up examination after completed treatment for malignant neoplasm

== ENCOUNTER → 2017-08-04 | Outpatient (CLI) | payer BC, OTHER ==
[2017-08-04 12:56] VITALS: BP 115/78; PULSE 73; TEMP 37.1; O2SAT 97
--- NOTE | 2017-08-04 16:18 | Radiation Oncology Follow-Up ---
Radiation Oncology Follow-Up Date of Visit Aug 04, 2017. Reason For Visit Annual follow-up Radiation Completion Date 12/05/15 Diagnosis (1) Breast cancer of upper-inner quadrant of left female breast Status: Resolved Onset Date: 07/09/2015 Stage: l (A) Permanent Comment: Abnormal left breast mammogram 05/14/2015 Status post bilateral breast MRIs 06/19/2015 Status post MRI guided biopsy of the left breast 07/09/2015 Infiltrating ductal carcinoma grade 1 Estrogen receptor positive, progesterone receptor positive, HER-2/sharee negative Status post core biopsy left axilla 07/25/2015 benign Status post MRI guided biopsy of the right breast 07/30/2015 benign Status post lumpectomy and sentinel lymph node biopsy 09/05/2015 Stage pT1a [id number] BRCA1 and BRCA2 testing negative Oncotype DX score of 18 Status post completion of radiation therapy 12/05/2015 received 6640 cGy Last Edited By: Rita Yuan on Jan 07, 2016 16:24 History of Present Illness Ms. Hernandez is without an immediate family history of breast cancer. She has been followed with screening mammograms. Her most recent scan performed on 10/2015 consisted of a bilateral digital screening mammogram with a 3-D/2-D and CAD. There were 2 areas of possible architectural distortion seen within the left superior breast on the Tomosynthesis images only. One was in the left breast at the 12 o'clock position and the other posteriorly likely located within the left upper inner quadrant. Additional imaging was recommended to include a spot compression view, true lateral view and possible breast ultrasound. On 05/27/2015 patient underwent a unilateral left digital diagnostic mammogram and targeted left breast ultrasound. The recently described architectural distortion was inconspicuous on the standard left MLO mammogram with no suspicious cluster microcalcifications. Further evaluation with ultrasound was performed with no definite tissue distortion or spiculated mass seen to correlate with architectural distortion. However given the patient 's dense breast and distant family history of breast cancer a contrast-enhanced bilateral breast MRI was recommended. On 06/19/2015 patient underwent bilateral breast MRIs. In the right breast at the 12 o'clock position anteriorly there is a 5-6 mm enhancing focus which demonstrates corresponding T2 hyperintensity and mixed kinetic pattern. This focus was indeterminant and a second look ultrasound was recommended. The remainder of the right breast demonstrated no suspicious enhancing masses or areas of abnormal non-mass enhancement. In the left breast from the 10th 12:00 middle depth there is an area of non-mass enhancement with associated architectural distortion which measures up to 3.5 x 4.7 x 4.0 cm. This area of enhancement demonstrated a mixed persistent and plateau kinetic pattern and corresponds with the larger area of architectural distortion seen mammographically. In the left breast at the 10 o'clock position posteriorly there is an irregular 0.6 x 0.8 cm area of enhancement which demonstrates a mixed persistent and plateau kinetic pattern that is felt to correlate with the other smaller area of architectural distortion seen mammographically. These 2 areas were felt to be suspicious and were given a BI-RADS Category 4 with recommended biopsy. On 07/09/2015 the patient underwent multiple MRI biopsies of the left breast these were taken from the 2 areas of abnormal enhancement within the left upper inner quadrant seen on the recent breast MRI. The tissue from the left breast upper inner quadrant posteriorly yielded an infiltrating ductal carcinoma grade 1. The pathology from the left upper inner quadrant anterior biopsy revealed benign breast tissue. Given the finding of an carcinoma in the left breast consideration of an MRI guided biopsy of the right breast was recommended. The pathology revealed the tumor to be estrogen receptor positive (100%, strong) and progesterone receptor positive (30%, moderate). HER-2/sharee overexpression was negative (1+) and negative for HER-2/sharee amplification by FISH analysis. Ki -67 revealed 5% of cells positive. Case: [id number]. On 07/30/2015 patient underwent an MRI guided biopsy of the anterior right breast at the 12 o'clock position. This revealed benign breast tissue with nonspecific small areas of nodular fibrosis and chronic inflammation. Case: [id number]. The patient was seen by Dr. Lauren Cueva at [facility] The patient's pathology was reviewed at the [facility]. The initial biopsy was reviewed and confirmed an invasive ductal carcinoma well differentiated with tumor cells ER/IN positive and HER-2/sharee negative. Accession #: [id number]. The mammographic and MRI images were also reviewed. Review of the MRI revealed in the left lower lobe 1 axilla what appeared to be a somewhat rounded and asymmetric node. Based on these images they recommended a left axillary ultrasound and biopsy if appropriate. The left axilla ultrasound revealed an oval axillary lymph node measuring 1.4 cm in the left axilla at the posterior depth. Therefore on 07/25/2015 the patient underwent a core biopsy of the left axillary node. This revealed benign fibrofatty tissue with no lymphoid tissue present. Accession #: [id number]. The patient was subsequently seen by Dr. Shanna Pinto a breast surgeon with the [facility]. She proceeded with a breast conserving therapy recommendation and the patient agreed. On 09/05/2015 the patient underwent a left partial mastectomy and sentinel node biopsy. 3 sentinel nodes were identified and were negative by routine staining and immunohistochemical stain. The lumpectomy tissue revealed residual invasive ductal carcinoma measuring approximately 0.9 mm. This was an invasive ductal carcinoma histologic grade 2. The margins were negative for invasive carcinoma. No DCIS was noted. No lymphovascular invasion was identified and estrogen and progesterone receptors were positive from previous biopsy. The final AJCC pathologic staging was pT1a pN0(sn-) ER positive IN positive HER-2/sharee negative. Patient was seen in referral by Dr. Chuy Song on 09/18/2015. The patient has had reportedly prior BRCA testing which has been negative. Dr. Song wanted to have an Oncotype DX evaluation and this tissue has been sent. However given the small volume it is possible that insufficient tissue is present. He did review with her systemic adjuvant therapy as a more likely recommendation consisting of an aromatase inhibitor if the Oncotype test is possible that this will be used to determine the potential use of chemotherapy. We were asked to see the patient in referral to discuss with her the potential role of radiation. It is for this reason the patient is seen in referral. Her Oncotype DX score came back at 18. She returned and underwent CT simulation. Decision was to treat with conventional radiation therapy. It was best planning in the prone position. Treatment was given from 10/26/2015 to 12/05/2015. She received 6640 cGy. Interim History Over this past year she continues to have some mild discomfort in the area of the axillary incision. She is noted no masses. There is been no change of the skin. She is up-to-date on mammography. She is contemplating an evaluation by plastic surgeon for breast reduction on the right and possible removal of "fat necrosis" of the left breast. She is concerned about weight gain. She would like to lose weight before undergoing any surgery. She has joined weight [employer]. She will be due for annual MRI in January. She has been diagnosed with sleep apnea and now is using a CPAP machine. Allergies Coded Allergies: Sertraline (Verified Allergy, Mild, RASH, 09/18/15) Home Medications Scheduled Azelastine Hcl (Astelin Nasal Desdemona), 2 SPRAYS BANG BID Calcium Carbonate-Cholecalcife (Calcium 600 + D 600-200 mg-Unit), 1 TAB PO BID Cholecalciferol (Vitamin D3), 2,000 INTER.UNIT PO BID Escitalopram Oxalate (Lexapro), 20 MG PO DAILY Exemestane (Aromasin), 25 MG PO DAILY Magnesium Oxide (Mag-Ox), 200 MG PO BID Mometasone Furoate (Nasal) (Mometasone Furoate), 2 SPRAYS BANG BID Multivitamins/Minerals (Mvi With Minerals), 1 TAB PO DAILY Probiotic Product (Probiotic), 1 CAP PO DAILY Scheduled PRN Ibuprofen (Advil), 200-600 MG PO Q4H PRN for Pain or Fever Ketotifen Fumarate (Ophth) (Zaditor 0.025% Oph), 1 DROP OP Q8-12 HRS PRN for Allergies Saline (Hayes Nasal Desdemona), 2 SPRAYS BANG Q2-4HRS PRN for Nasal Congestion Sumatriptan Succinate (Imitrex), 100 MG PO UD PRN for Migraine Review of Systems Gastrointestinal: Symptoms: WNL Oral: Symptoms: No Problems Respiratory: Symptoms: WNL Urinary: Symptoms: WNL Skin: Symptoms: No Problems Breast: Right Upper Arm Measurement: 28.1 Right Mid Arm Measurement: 24.0 Right Wrist Measurement: 16.3 Left Upper Arm Measurement: 28.8 Left Mid Arm Measurement: 24.2 Left Wrist Measurement: 16.1 Arm Dominence: Right Physical Exam Vital Signs Date Time Temp Pulse Resp B/P (MAP) Pulse Ox O2 Delivery O2 Flow Rate FiO2 08/04/17 12:56 37.1 73 16 115/78 97 Fatigue: None General Appearance: no apparent distress Eyes: normal inspection, EOMI ENT: normal ENT inspection, hearing grossly normal Neck: no adenopathy, thyroid normal Respiratory/Chest: lungs clear, no respiratory distress, no accessory muscle use Breast: Breast examination reveals well-healed incisions of the left breast. There are no masses or tenderness and no axillary adenopathy. There is fibrous changes in the area of the incision. There is slight hyperpigmentation. There is slight edema. Using the [place] score cosmesis she has a good outcome. The right breast showed no masses or tenderness and no axillary adenopathy. Cardiovascular: regular rate, rhythm, no gallop, no murmur Extremities: no pedal edema Neurologic/Psychiatric: no motor/sensory deficits, alert, normal mood/affect Skin: warm/dry Pain Management Patient Reports Pain: No Initial Pain Intensity: 0.0 Pain Management Plan She does not give a pain level to the mild discomfort of the breast. Laboratory Laboratory Results: not applicable Pathology Pathology Results: not applicable Imaging Imaging Studies: were reviewed, and pertinent findings noted below Imaging Comments Patient: VAUGHN HERNANDEZ [facility] Rec: [id number] Address1: [address] [place] [address] Address2: [place] [address] Acct ID: [id number] Date: 1960 Sex: F Ref Phy: Shanna Pinto M.D. Att Phy: Maryan Vanegas M.D. Sasha Phy: Daylin Mcmahon D.O. Inter Phy: Edie Gonzales MD [facility] [place] Zip: [place] [address] SC: LarissaMAMM Report #: [id number] Studio Data Analyst: KAUSHAL Diagnosis: 6 MOS F/U BILATERAL Service Date: 07/26/17 MNE: [id number] Ordering Dr: Maryan Vanegas M.D. CC: Maryan Vanegas M.D. CONF: DICTATED BY: Edie Gonzales MD MAMMOGRAPHY REPORT BILATERAL DIGITAL DIAGNOSTIC MAMMOGRAM TOMOSYNTHESIS WITH CAD: 07/26/2017 CLINICAL HISTORY: History of left breast cancer diagnosed in 2016 status post lumpectomy. The patient reports no current complaints. TECHNIQUE: Breast tomosynthesis in addition to standard 2D mammography was performed. Current study was also evaluated with a Computer Aided Detection (CAD ) system. Bilateral CC and MLO 2D and tomosynthesis images and spot magnification left CC and ML views were obtained. COMPARISON: Comparison is made to exams dated: 01/26/2017 mammogram, 01/26/2017 breast MRI, 07/14/2016 mammogram, 01/26/2016 breast MRI, 01/13/2016 mammogram, and ultrasound - [facility]. BREAST COMPOSITION: The tissue of both breasts is heterogeneously dense, which may obscure small masses. FINDINGS: Again noted are postsurgical changes in the left superior breast at approximately 12:00 from prior lumpectomy, including stable density and architectural distortion as well as surgical clips at the lumpectomy bed. Fat density masses are again noted at the lumpectomy bed, consistent with fat necrosis. There are new coarse calcifications outlining some of the fat density masses, consistent with benign coarse dystrophic calcifications from fat necrosis. A few punctate benign-appearing calcifications within the left upper outer anterior breast are not significantly changed. The remainder of both breasts are stable compared to prior exams, without suspicious masses, calcifications, or areas of architectural distortion noted. A biopsy clip is again noted within the right 12:00 anterior breast. IMPRESSION: ACR BI-RADS CATEGORY 2: BENIGN Expected posttreatment changes in the left breast, without mammographic evidence of malignancy in either breast. Recommend routine bilateral mammograms in 1 year; consider remaining a diagnostic patient so that spot magnification views can be performed of the lumpectomy bed if needed. Additionally, consider continuation with annual screening breast MRI given the personal history of breast cancer and dense breast parenchyma mammographically, which would be due in January 2018. The patient has been verbally notified of the results. Approximately 10% of breast cancers are not detected with mammography. A negative mammographic report should not delay biopsy if a clinically suggestive mass is present. Edie Gonzales M.D. ah/:07/26/2017 08:23:38 Financial Quantitative Analyst: Matilde Andino, [facility] letter sent: Normal 1/2 BI-RADS Code: ACR BI-RADS Category 2: Benign Dictated by: Edie Gonzales MD Signed by: Edie Gonzales MD Assessment & Plan Plan: Continue with scheduled mammography. She is due for MRI in January. An order was written and this will be scheduled. She is going and doing weight watchers in order to lose what she has gained in weight. She is planning to schedule appointment with a plastic surgeon for an evaluation. She will continue follow-up with her breast surgeon. She continues follow-up with medical oncology. She continues on the aromatase inhibitor. We asked her to return to our office in 1 year. Total Time In Follow-Up I spent 20 minutes speaking to the patient and performing examination. I spent 20 minutes reviewing information and completing this note. Copy To Chuy Song D.O.; Daylin Mcmahon D.O.; Shanna Pinto M.D. Problem Qualifiers (1) Breast cancer of upper-inner quadrant of left female breast: Estrogen receptor status: positive Qualified Codes: C50.212 - Malignant neoplasm of upper-inner quadrant of left female breast; Z17.0 - Estrogen receptor positive status [ER+]
== END | disposition home or self-care (01) ==
LOC: C.ONC 12:44
PROVIDERS: ATTEND Physician Assistant Medical
DX: Z08 Encounter for follow-up examination after completed treatment for malignant neoplasm (principal); Z92.3 Personal history of irradiation; Z85.3 Personal history of malignant neoplasm of breast